=== PATIENT | female | born 1985 | race Caucasian/White ===

== ENCOUNTER 2024-07-12 09:13 | Outpatient (REF) | payer OTHER, SELFPAY ==
[2024-07-12 18:11] LABS: MANUAL DIFF FLAG NO
[2024-07-12 18:32] LABS: Basophils Absolute Auto 0.1 X10*3/uL (0.0-0.2); Basophils Percent Auto 0.6 % (0-2); Eosinophils Absolute Auto 0.1 X10*3/uL (0.0-0.4); Eosinophils Percent Auto 0.6 % (0-4); Hematocrit 40.4 % (37.0-47.0); Imm Gran Abs Auto 0.03 X10*3/uL (0.00-0.03); Imm Gran Pct Auto 0.3 % (0.0-0.4); Lymphocytes Absolute Auto 1.4 X10*3/uL (1.2-4.9); Lymphocytes Percent Auto 14.9 % (20-40); Mean Corpuscular HGB Conc 34.7 g/dl (31.0-35.0); Mean Corpuscular Hemoglobin 32.5 pg (27.0-33.0); Mean Corpuscular Volume 93.7 fL (80.0-98.0); Mean Platelet Volume 10.1 fL (9.4-12.3); Monocytes Absolute Auto 0.4 X10*3/uL (0.1-1.2); Monocytes Percent Auto 4.2 % (2-11); Neutrophils Absolute Auto 7.2 x10*3/uL (2.0-8.3); Neutrophils Percent Auto 79.4 % (45-73); Platelet Count 269 X10*3/uL (160-400); Red Blood Count 4.31 X10*6/uL (4.20-5.50); Red Cell Distribution Width 12.4 % (11.0-16.0)
[2024-07-12 18:36] LABS: Alanine Aminotransferase 25 U/L (0-31); Aspartate Amino Transferase 32 U/L (5-31); C Reactive Protein 1.53 mg/dL (< or = 0.50); Estimated Glomerular Filt Rate > 60
[2024-07-12 18:39] LABS: Rheumatoid Factor < 13.0 IU/mL (<15.0)
[2024-07-12 19:14] LABS: Erythrocyte Sedimentation Rate 3 MM/HR (0-20)
[2024-07-13 04:30] LABS: HBS Num1 22.44 mIU/mL (0-7.99); HBc Num1 0.07 S/CO (0.00-0.79); HBsAGNum1 0.28 S/CO (0.00-0.99); Hepatitis B Core Antibody Nonreactive (Nonreactive); Hepatitis B Surface Antigen Negative (Negative); ~HepC Num1 0.16 S/CO (0.00-0.79); ~Hepatitis B Surface Antibody REACTIVE (Nonreactive); ~Hepatitis C Antibody Nonreactive (Nonreactive)
[2024-07-13 13:29] LABS: Cyclic Citrullinated Peptide <16 UNITS
[2024-07-15 09:48] LABS: TS Negative Control Passed; TS Panel A 0; TS Panel B 0; TS Positive Control Passed; TSpotTB Negative (Negative)
[2024-07-16 15:13] LABS: Glucose-6-Phosphate Dehydrogen 21.2 U/g Hgb (7.0-20.5)
== END 2024-07-12 09:14 | disposition home or self-care (01) ==
LOC: HO.HKASLDS 09:13
PROVIDERS: PCP Internal Medicine; Visit Provider Internal Medicine Rheumatology
DX: M06.9 Rheumatoid arthritis, unspecified (principal); Z79.899 Other long term (current) drug therapy; Z79.60 Long term (current) use of unspecified immunomodulators and immunosuppressants
CPT/HCPCS: 36415; 82565; 82955; 84450; 84460; 85025; 85652; 86140; 86200; 86431; 86481; 86704; 86706; 86803; 87340

== ENCOUNTER 2024-07-12 09:13 | Outpatient (AMB) | payer OTHER, SELFPAY ==
--- NOTE | 2024-07-12 09:15 | MHC.OFFVIS ---
Vital Signs 07/12/24 09:19 Height 5 ft 7 in Weight 159 lb 2.78 oz BMI 24.9 BP 150/90 H Blood Pressure Location Lt brachial Position Sitting Pulse 81 Pulse Source Pulse Oximeter Pulse Oximetry (%) 90 L Oxygen Delivery Method Room Air Intake Visit Reasons: RA Intake Note: Pt presents today for RA follow up. Allergies No Known Allergies Allergy (Verified 07/12/24 09:20) HPI HPI RA: Details: Pain in hands and left shoulder. 2 weeks of left shoulder pain. HCQ was reduced to 200mg daily from 300mg daily by Dr. Hernandez R wrist cyst for 2 months resolved last week Last eye exam for HCQ October She has been taking aleve x2 without benefit Continues to work out at the gym and takes classes. [facility] [place] Surgical History (Updated 07/12/24 @ 09:22 by Kamille White [facility]) H/O left knee surgery Review of Systems Const All systems reviewed & are unremarkable except as noted in HPI and below Physical Exam Vital Signs: Last Vital Signs Pulse 81 07/12/24 09:19 BP 150/90 H 07/12/24 09:19 Pulse Ox 90 L 07/12/24 09:19 Oxygen Delivery Method Room Air 07/12/24 09:19 BMI result Body Mass Index 24.9 Const Other: General: Comfortable CVS: RRR Respiratory: clear to auscultation bilaterally. Good respiratory effort Skin: No lesions seen MSK:Left 2nd PIP synovitis without tenderness. Right 2nd PIP tenderness found. Left dorsal wrist ganglion cysts present without tenderness on palpation. Normal range of motion of upper extremity and lower extremity. Assessment & Plan Assessment & Plan (1) Rheumatoid arthritis: Comment: Seronegative diagnosed in 2010 (Dr. Cee). HCQ 06/2012-dose reduced from 300mg qd to 200mg qd 11/2023 Dr. Hernandez. She has developed synovitis left 2nd PIP with recurrent ganglion cyst in wrists, increased polyarthralgias nonresponsive to OTC Aleve 440 mg qd. She has a cyclic history of increased polyarthralgias and stiffness in the fall/winter previously responsive to OTC Aleve. If her joint symptoms are not controlled with increasing hydroxychloroquine back to 300 mg daily, she will need add on DMARD therapy. Code(s): M06.9 - Rheumatoid arthritis, unspecified Category: Medical Plan: Increase hydroxychloroquine to 300 mg daily. OCT and VF 10/2023 ok. Labs for disease and drug monitoring on high-risk medication ordered Prednisone course prescribed Return to clinic in 3 months Orders: Orders Alanine Aminotransferase 07/12/24 Z79.60 - termite treater helper (current) use of unspecified immunomodulators and immunosuppressants Aspartate Amino Transferase 07/12/24 Z79.60 - termite treater helper (current) use of unspecified immunomodulators and immunosuppressants Complete Blood Count Auto Diff 07/12/24 Z79.60 - penitentiary (current) use of unspecified immunomodulators and immunosuppressants Creatinine 07/12/24 Z79.60 - termite treater helper (current) use of unspecified immunomodulators and immunosuppressants Cyclic Citrullinated Peptide 07/12/24 M06.9 - Rheumatoid arthritis, unspecified Rheumatoid Factor 07/12/24 M06.9 - Rheumatoid arthritis, unspecified Erythrocyte Sedimentation Rate 07/12/24 Z79.899 - Other nursing home (current) drug therapy C Reactive Protein 07/12/24 Z79.899 - Other terminal worker (current) drug therapy Hepatitis B,C Profile 07/12/24 M06.9 - Rheumatoid arthritis, unspecified T Spot TB 07/12/24 M06.9 - Rheumatoid arthritis, unspecified [id number] Dehydrogen 07/12/24 M06.9 - Rheumatoid arthritis, unspecified Medications: New hydroxychloroquine 300 mg (1.5 x 200 mg) PO DAILY 90 days 135 tabs 1RF meloxicam 15 mg PO DAILY 30 tabs 1RF Coding Level of Care Code Est Pt Level 4 (08174) Complex EM visit Add On G2211 Diagnoses Rheumatoid arthritis M06.9
[2024-07-12 09:19] VITALS: BP 150/90; PULSE 81; O2SAT 90; BMI 24.9
== END 2024-07-12 10:05 | disposition home or self-care (01) ==
LOC: HO.RHES 09:13
PROVIDERS: PCP Internal Medicine; Visit Provider Internal Medicine Rheumatology
DX: M06.9 Rheumatoid arthritis, unspecified (principal)
CPT/HCPCS: 99214

== ENCOUNTER 2024-12-27 12:31 | Outpatient (AMB) | payer OTHER, SELFPAY ==
[2024-12-27 12:38] VITALS: BP 140/70; PULSE 90; O2SAT 98; BMI 24.3
--- NOTE | 2024-12-27 12:38 | A.OFFVIS_ITS ---
Vital Signs 12/27/24 12:38 Height 5 ft 7 in Weight 155 lb 3.287 oz BMI 24.3 BP 140/70 H Blood Pressure Location Lt brachial Position Sitting Pulse 90 Pulse Source Pulse Oximeter Pulse Oximetry (%) 98 Oxygen Delivery Method Room Air Intake Visit Reasons: 3 Months Intake Note: Pt presents today for RA follow up. Accompanied by: Self / Same As Patient Allergies No Known Allergies Allergy (Verified 07/12/24 09:20) HPI HPI 3 Months: Details: She feels well. No joint swelling. No infections. She had asthma during childhood, which got exacerbated a few months ago. She only had to use albuterol inhaler twice. [facility] Medical History (Updated 12/27/24 @ 13:04 by Reyes Palomino MD) Asthma Surgical History H/O left knee surgery Physical Exam Vital Signs: Last Vital Signs Pulse 90 12/27/24 12:38 BP 140/70 H 12/27/24 12:38 Pulse Ox 98 12/27/24 12:38 Oxygen Delivery Method Room Air 12/27/24 12:38 BMI result Body Mass Index 24.3 Const Other: General: Comfortable CVS: RRR Respiratory: clear to auscultation bilaterally. Good respiratory effort Skin: No lesions seen MSK: No tender joints. No synovitis. She does not have ganglion cysts on exam. Normal range of motion of upper extremity and lower extremity. Assessment & Plan Assessment & Plan (1) Rheumatoid arthritis: Comment: Inflammatory arthritis resolved with prednisone course. She is in remission on hydroxychloroquine 300 mg daily. Labs from June revealed mild elevation in ALT. She occasionally drinks alcohol, which improved from April 2024. I will be rechecking labs this visit. Rheumatology history: Seronegative diagnosed in 2010 (Dr. Cee). HCQ 07/06 13-dose reduced from 300mg qd to 200mg qd 11/2023 Dr. Hernandez. She developed synovitis left 2nd PIP with recurrent ganglion cyst in wrists, increased polyarthralgias nonresponsive to OTC Aleve 440 mg qd. Hydroxychloroquine increase to 300 mg q.d. June 2024 with benefit. She has a cyclic history of increased polyarthralgias and stiffness in the fall/winter previously responsive to OTC Aleve. Code(s): M06.9 - Rheumatoid arthritis, unspecified Category: Medical Plan: Continue hydroxychloroquine to 300 mg daily. OCT and VF 10/2023 ok. She has eye exam scheduled for next week. Labs for disease and drug monitoring on high-risk medication ordered Return to clinic in 6 months or sooner if needed. She will call office if joint symptoms are active for evaluation Orders: Orders Alanine Aminotransferase Today Z79.899 - Other intermediate teacher (current) drug therapy C Reactive Protein Today Z79.899 - Other intermediate teacher (current) drug therapy Complete Blood Count Auto Diff Today Z79.899 - Other intermediate teacher (current) drug therapy Aspartate Amino Transferase Today Z79.899 - Other half-way (current) drug therapy Creatinine Today Z79.899 - Other intermediate teacher (current) drug therapy Erythrocyte Sedimentation Rate Today Z79.899 - Other intermediate teacher (current) drug therapy Coding Level of Care Code Est Pt Level 4 (51821) Complex EM visit Add On G2211 Diagnoses Rheumatoid arthritis M06.9
== END 2024-12-27 12:59 | disposition home or self-care (01) ==
LOC: HO.RHES 12:32
PROVIDERS: PCP Internal Medicine; Visit Provider Internal Medicine Rheumatology
DX: M06.9 Rheumatoid arthritis, unspecified (principal)
CPT/HCPCS: 99214; G2211

== ENCOUNTER 2024-12-27 12:31 | Outpatient (REF) | payer OTHER, SELFPAY ==
[2024-12-27 18:19] LABS: MANUAL DIFF FLAG NO
[2024-12-27 18:41] LABS: Hematocrit 39.2 % (37.0-47.0); Hemoglobin 13.3 g/dl (12.0-16.0); Imm Gran Abs Auto 0.03 X10*3/uL (0.00-0.03); Imm Gran Pct Auto 0.3 % (0.0-0.4); Lymphocytes Absolute Auto 1.8 X10*3/uL (1.2-4.9); Mean Corpuscular HGB Conc 33.9 g/dl (31.0-35.0); Mean Corpuscular Hemoglobin 31.7 pg (27.0-33.0); Mean Corpuscular Volume 93.3 fL (80.0-98.0); NRBC Abs Auto 0.000 X10*3/uL (0.0-0.012); NRBC Pct Auto 0.0 /100WBC (0.0-0.2); Platelet Count 265 X10*3/uL (160-400); Red Blood Count 4.20 X10*6/uL (4.20-5.50); White Blood Count 8.6 X10*3/uL (4.8-10.8)
[2024-12-27 18:54] LABS: Alanine Aminotransferase 25 U/L (0-31); Aspartate Amino Transferase 31 U/L (5-31); Estimated Glomerular Filt Rate > 60
== END 2024-12-27 12:32 | disposition home or self-care (01) ==
LOC: HO.HKASLDS 12:31
PROVIDERS: PCP Internal Medicine; Visit Provider Internal Medicine Rheumatology
DX: Z51.81 Encounter for therapeutic drug level monitoring (principal); M06.00 Rheumatoid arthritis without rheumatoid factor, unspecified site; Z79.899 Other long term (current) drug therapy
CPT/HCPCS: 36415; 82565; 84450; 84460; 85025; 85652; 86140